=== PATIENT | male | born 1960 | race Caucasian/White ===

== ENCOUNTER 2021-05-20 11:54 | Observation (INO) | payer BC, MEDICAID ==
[2021-05-20] MEDS ORDERED: Dexamethasone 10 MG/ML SDV ONE (12:08)
[2021-05-20] MEDS ORDERED: hydrOXYzine HCl 50 MG/ML SDV ONE (12:08)
[2021-05-20] MEDS ORDERED: methylPREDNISolone Sodium Succinate 125 MG/2 ML SDV ONE (12:10)
[2021-05-20] MEDS ORDERED: methylPREDNISolone Sodium Succinate 125 MG/2 ML SDV IVPUSH ONE (12:12)
[2021-05-20] MEDS ORDERED: Famotidine 20 MG/2 ML SDV IVPUSH ONE (12:23)
[2021-05-20] MEDS ORDERED: Sodium Chloride 0.9% 1,000 ML IV ONE (12:35)
[2021-05-20] MEDS: Sodium Chloride 0.9% 10 ML Syringe FLUSH PRN (13:03)
[2021-05-20] MEDS ORDERED: EPINEPHrine 1 MG/1 ML Amp IM ONE (13:34)
[2021-05-20] MEDS ORDERED: EPINEPHrine 1 MG/1 ML Amp ONE (13:34)
--- NOTE | 2021-05-20 13:56 | EDM.PDOC ---
ED HPI GENERAL MEDICAL PROBLEM - General Chief Complaint: Allergic Reaction Stated Complaint: swollen tongue Time Seen by Provider: 05/20/21 12:45 Source of Information: Reports: Patient History Limitations: Reports: No Limitations - History of Present Illness INITIAL COMMENTS - FREE TEXT/NARRATIVE: Patient states this morning after eating a breakfast pizza he noticed that his lip started feeling fine as well as his tongue and then they started swelling within the 10 to 15 minutes after finishing it. He states he did every just like a pizza for secondary to it being a new one in his hotel. He said he is never had any issues like this before. He does take lisinopril for hypertension but he did not take it this morning his last dose was about 9:00 last night. And he has been on it for 10+ years. He denies any trouble breathing swallowing or holding spit at this time. He has noticed though that his tongue is gotten thicker as well as his lips since the start of this episode. 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(s) Other Treatments BUILDING INSPECTION ENGINEER: Benadryl - Related Data Allergies Allergy/AdvReac Type Severity Reaction Status Date / Time No Known Allergies Allergy Verified 05/20/21 11:58 Home Meds: Home Meds Aspirin [Halfprin] 81 mg PO DAILY 05/20/21 [History] Meloxicam 15 mg PO DAILY 05/20/21 [History] Phentermine HCl 15 mg PO DAILY 05/20/21 [History] atorvaSTATin [Lipitor] 10 mg PO BEDTIME 05/20/21 [History] glipiZIDE [Glucotrol] 5 mg PO DAILY 05/20/21 [History] hydroCHLOROthiazide [Hydrochlorothiazide] 50 mg PO DAILY 05/20/21 [History] lisinopriL [Lisinopril] 20 mg PO BID 05/20/21 [History] metFORMIN [Glucophage] 500 mg PO BIDMEALS 05/20/21 [History] Social & Family History - Tobacco Use Tobacco Use Status *Q: Former Tobacco User Years of Tobacco use: 35 Packs/Tins Daily: 3 Used Tobacco, but Quit: Yes Month/Year Tobacco Last Used: 03/2000 Second Hand Smoke Exposure: No - Caffeine Use Caffeine Use: Reports: Coffee, Soda Other Caffeine Use: "a lot of coffee", 1-2 sodas daily - Alcohol Use Days Per Week of Alcohol Use: 1 Number of Drinks Per Day: 1 Total Drinks Per Week: 1 - Recreational Drug Use Recreational Drug Use: No ED ROS ALLERGIC REACTION - Review of Systems Review Of Systems: See Below Constitutional: Reports: No Symptoms HEENT: Denies: Eye Discharge, Sinus Problem, Throat Pain, Throat Swelling Respiratory: Reports: No Symptoms. Denies: Shortness of Breath, Wheezing, Cough Cardiovascular: Reports: No Symptoms Endocrine: Reports: No Symptoms GI/Abdominal: Reports: No Symptoms Skin: Reports: No Symptoms. Denies: Pruritis, Rash, Erythema, Urticaria Neurological: Reports: No Symptoms Psychiatric: Reports: No Symptoms Hematologic/Lymphatic: Reports: No Symptoms Immunologic: Reports: No Symptoms. Denies: Anaphylaxis (Questionable allergy to something on the pizza versus possible lisinopril allergy with ESTRELLA inhibitor) ED EXAM GENERAL NO PERIP PULSE - Physical Exam Exam: See Below Text/Narrative:: Patient has normal phonation Mallampati score of two I can visualize oropharynx there is no noted submandibular edema the uvula is in line he has a normal respiratory drive talking with no issues. But there is significant angioedema noted. Exam Limited By: No Limitations General Appearance: Alert, WD/WN, No Apparent Distress Eye Exam: Bilateral Eye: EOMI, Normal Inspection, PERRL Ears: Normal External Exam, Normal Canal, Hearing Grossly Normal, Normal TMs Nose: Normal Inspection, Normal Mucosa, No Blood Throat/Mouth: Normal Teeth, Normal Gums, Normal Oropharynx, Normal Voice, No Airway Compromise, Other (There is significant angioedema with the lips and the tongue but I can fully visualize the posterior pharynx he has a Mallampati score of two. There is no noted tonsillar edema the uvula is midline). No: Normal Inspection, Normal Lips Neck: Normal Inspection, Supple, Non-Tender, Full Range of Motion Respiratory/Chest: No Respiratory Distress, Lungs Clear, Normal Breath Sounds, No Accessory Muscle Use, Chest Non-Tender. No: Decreased Breath Sounds, Wheezing Cardiovascular: Normal Peripheral Pulses, Regular Rate, Rhythm, No Edema, No Gallop, No JVD, No Murmur, No Rub GI/Abdominal: Normal Bowel Sounds, Soft, Non-Tender, No Organomegaly, No Distention Extremities: Normal Inspection, Normal Range of Motion, Non-Tender, No Pedal Edema Neurological: Alert, Oriented, CN II-XII Intact, Normal Cognition, Normal Gait, No Motor/Sensory Deficits Psychiatric: Normal Affect, Normal Mood Skin Exam: Warm, Dry, Intact, Normal Color, No Rash Lymphatic: No Adenopathy Course - Vital Signs Text/Narrative:: Patient was given 50 mg of Vistaril IM 10 mg of Decadron IV 125 mg Solu-Medrol IV 20 mg Pepcid IV he was reassessed multiple times showed 50% decrease in angioedema patient states he feels better although he still feels that his tongue is very thick lips have improved dramatically. Vital signs are still within normal limits patient has no respiratory issues. Patient was given epinephrine 1 to 10,000 units 0.3 mL subcu. Patient showed no signs of any anaphylaxis shock prior to this this is secondary to laryngeal edema Patient was rechecked states he feels better but still not 100%. At this time patient will place in observation for the next 24 hours given a course of steroids H2 summer IV and if everything looks well will discharge in the morning. Last Recorded V/S: Last Vital Signs Temp 36.6 C 05/20/21 12:44 Pulse 72 05/20/21 13:44 Resp 16 05/20/21 13:44 BP 132/82 05/20/21 13:44 Pulse Ox 93 L 05/20/21 13:44 - Orders/Labs/Meds Orders: Active Orders 24 hr Category Date Time Status Peripheral IV Care [RC] . DIRECTED Care 05/20/21 13:02 Active Sodium Chloride 0.9% [Saline Flush] Med 05/20/21 13:02 Active 10 ml FLUSH ASDIRECTED PRN Peripheral IV Insertion Adult [OM.PC] Routine Oth 05/20/21 13:02 Ordered Medication Orders Sodium Chloride (Sodium Chloride 0.9% 10 Ml Syringe) 10 ml FLUSH ASDIRECTED PRN PRN Reason: Keep Vein Open Last Admin: 05/20/21 13:03 Dose: 10 ml Documented by: RAFAEL Meds: Medications Generic Name Dose Route Start Last Admin Trade Name Freq PRN Reason Stop Dose Admin Sodium Chloride 10 ml 05/20/21 13:02 05/20/21 13:03 Sodium Chloride 0.9% 10 Ml Syringe FLUSH 10 ml ASDIRECTED PRN Administration Keep Vein Open Discontinued Medications Generic Name Dose Route Start Last Admin Trade Name Erin PRN Reason Stop Dose Admin Dexamethasone Confirm 05/20/21 12:08 05/20/21 12:23 Dexamethasone 10 Mg/Ml Sdv Administered 05/20/21 12:09 10 mg Dose Administration 10 mg .ROUTE .STK-MED ONE Epinephrine HCl 0.3 mg 05/20/21 13:34 05/20/21 13:39 Epinephrine 1 Mg/1 Ml Amp IM 05/20/21 13:35 0.3 mg ONETIME ONE Administration Epinephrine HCl Confirm 05/20/21 13:34 Epinephrine 1 Mg/1 Ml Amp Administered 05/20/21 13:35 Dose 1 mg .ROUTE .STK-MED ONE Famotidine 20 mg 05/20/21 12:23 05/20/21 12:28 Famotidine 20 Mg/2 Ml Sdv IVPUSH 05/20/21 12:24 20 mg ONETIME ONE Administration Hydroxyzine HCl Confirm 05/20/21 12:08 05/20/21 12:20 Hydroxyzine Hcl 50 Mg/Ml Sdv Administered 05/20/21 12:09 50 mg Dose Administration 50 mg .ROUTE .STK-MED ONE Sodium Chloride 1,000 mls @ 999 mls/hr 05/20/21 12:35 05/20/21 13:20 Normal Saline IV 05/20/21 13:35 999 mls/hr .BOLUS ONE Infusion Methylprednisolone Sodium Succinate 125 mg 05/20/21 12:12 05/20/21 12:19 Methylprednisolone Sodium Succinate 125 Mg/2 Ml Sdv IVPUSH 05/20/21 12:13 125 mg ONETIME ONE Administration Methylprednisolone Sodium Succinate Confirm 05/20/21 12:10 05/20/21 12:36 Methylprednisolone Sodium Succinate 125 Mg/2 Ml Sdv Administered 05/20/21 12:11 Not Given Dose 125 mg .ROUTE .STK-MED ONE Departure - Departure Time of Disposition: 14:00 Disposition: Refer to Observation Condition: Good Clinical Impression: Angioedema of lips, Angioedema - Discharge Information *PRESCRIPTION DRUG MONITORING PROGRAM REVIEWED*: No *COPY OF PRESCRIPTION DRUG MONITORING REPORT IN PATIENT SAFIA: No Referrals: Pau Strickland NP [Primary Care Provider] - Sepsis Event Note (ED) - Evaluation Sepsis Screening Result: No Definite Risk - Focused Exam Vital Signs: Vital Signs Temp Pulse Resp BP Pulse Ox 05/20/21 13:44 72 16 132/82 93 L 05/20/21 12:44 36.6 C 73 20 135/83 96 - Problem List & Annotations (1) Angioedema SNOMED Code(s): 44556868 Code(s): T78.3XXA - ANGIONEUROTIC EDEMA, INITIAL ENCOUNTER Status: Acute Current Visit: Yes (2) Angioedema of lips SNOMED Code(s): 760928022 Code(s): T78.3XXA - ANGIONEUROTIC EDEMA, INITIAL ENCOUNTER Status: Acute Current Visit: Yes - My Orders Last 24 Hours: My Active Orders 05/20/21 13:02 Peripheral IV Care [RC] . DIRECTED Sodium Chloride 0.9% [Saline Flush] 10 ml FLUSH ASDIRECTED PRN Peripheral IV Insertion Adult [OM.PC] Routine - Assessment/Plan Admission H&P: Please use this note as an admission H&P (Patient was placed in observation) Last 24 Hours: My Active Orders 05/20/21 13:02 Peripheral IV Care [RC] . DIRECTED Sodium Chloride 0.9% [Saline Flush] 10 ml FLUSH ASDIRECTED PRN Peripheral IV Insertion Adult [OM.PC] Routine
[2021-05-20] MEDS ORDERED: diphenhydrAMINE 50 MG/ML SDV IVPUSH PRN (14:10)
[2021-05-20] MEDS ORDERED: Sodium Chloride 0.9% 500 ML IV SCH (14:15)
[2021-05-20] MEDS ORDERED: methylPREDNISolone Sodium Succinate 125 MG/2 ML SDV IVPUSH SCH (14:15)
[2021-05-20] MEDS ORDERED: Dexamethasone 10 MG/ML SDV IVPUSH SCH (14:15)
[2021-05-20] MEDS: Sodium Chloride 0.9% 1,000 ML IV SCH (16:30)
[2021-05-20] MEDS: Dexamethasone 10 MG/ML SDV IVPUSH SCH (17:45)
[2021-05-20] MEDS: metFORMIN 500 MG Tab PO SCH (17:46)
[2021-05-20] MEDS: methylPREDNISolone Sodium Succinate 125 MG/2 ML SDV IVPUSH SCH (17:46)
[2021-05-20] MEDS ORDERED: atorvaSTATin 10 MG Tab PO SCH (20:00)
[2021-05-20] MEDS: Famotidine 20 MG/2 ML SDV IVPUSH SCH (21:07)
[2021-05-21] MEDS: methylPREDNISolone Sodium Succinate 125 MG/2 ML SDV IVPUSH SCH ×2 (00:32→06:03)
[2021-05-21] MEDS: Dexamethasone 10 MG/ML SDV IVPUSH SCH ×2 (00:32→06:02)
[2021-05-21] MEDS: Sodium Chloride 0.9% 10 ML Syringe FLUSH PRN ×2 (00:33→06:03)
[2021-05-21] MEDS: Sodium Chloride 0.9% 1,000 ML IV SCH (02:33)
[2021-05-21] MEDS: metFORMIN 500 MG Tab PO SCH (07:19)
[2021-05-21] MEDS: Famotidine 20 MG/2 ML SDV IVPUSH SCH (07:20)
--- NOTE | 2021-05-21 07:48 | PCM.DCSUM1 ---
Discharge Summary - Hospital Course Free Text/Narrative:: Patient was placed in observation last night secondary to angioedema. There is no complications or issues through the night. Patient states he feels great this morning wants to go home says he has not slept that well in a while. Brief History: See discharge H&P for full details. Patient was placed in observation secondary to acute angioedema whether it was called secondary from eating a breakfast pizza which he had never had for. Are secondary to long-term use of lisinopril which I believe was the cause of the angioedema. There is no issues through the night while placed in observation patient states he feels fine this morning feels back to normal by 100% and wants to go home. Diagnosis: Stroke: No - Discharge Data Discharge Date: 05/21/21 Discharge Disposition: Home, Self-Care 01 Event(s) Leading to Patient's *Q: NA Condition: Good - Referral to Home Health Primary Care Physician: Pau Strickland NP - Discharge Diagnosis/Problem(s) (1) Angioedema SNOMED Code(s): 48687307 ICD Code: T78.3XXA - ANGIONEUROTIC EDEMA, INITIAL ENCOUNTER Status: Acute Current Visit: Yes (2) Angioedema of lips SNOMED Code(s): 883063214 ICD Code: T78.3XXA - ANGIONEUROTIC EDEMA, INITIAL ENCOUNTER Status: Acute Current Visit: Yes - Patient Summary/Data Hospital Course: Vital signs noted off nursing notes stable through the night and this morning. Discharge exam head normocephalic atraumatic eyes PERRLA EOMI no injection oropharynx the lips are returned normal size along with the tongue there is no edema no hardening of the soft palate the patient has a Mallampati of 1 normal phonation moist mucous brains neck full range of motion no adenopathy appreciated heart regular rate and rhythm normal S1-S2 no murmurs rubs gallops appreciated lungs clear to auscultation bilaterally all boyle abdomen soft nontender negative HSM positive bowel sounds extremities full range of motion no edema noted. Assessment #1 acute angioedema 2. Medication reaction 3. Hypertension history 4. Diabetic type II - Patient Instructions Diet: Heart Healthy Diet Activity: As Tolerated Driving: May Drive Today Showering/Bathing: May Shower - Discharge Plan *PRESCRIPTION DRUG MONITORING PROGRAM REVIEWED*: No *COPY OF PRESCRIPTION DRUG MONITORING REPORT IN PATIENT SAFIA: No Home Medications: Home Meds Aspirin [Halfprin] 81 mg PO DAILY 05/20/21 [History] Meloxicam 15 mg PO DAILY 05/20/21 [History] Phentermine HCl 15 mg PO DAILY 05/20/21 [History] atorvaSTATin [Lipitor] 10 mg PO BEDTIME 05/20/21 [History] glipiZIDE [Glucotrol] 5 mg PO DAILY 05/20/21 [History] hydroCHLOROthiazide [Hydrochlorothiazide] 50 mg PO DAILY 05/20/21 [History] lisinopriL [Lisinopril] 20 mg PO BID 05/20/21 [History] metFORMIN [Glucophage] 500 mg PO BIDMEALS 05/20/21 [History] Patient Handouts: Epinephrine injection, Methylprednisolone Solution for Injection, Famotidine injection, Hydroxyzine injection, Dexamethasone injection Referrals: Pau Strickland NP [Primary Care Provider] - - Discharge Summary/Plan Comment DC Time >30 min.: No Discharge Summary/Plan Comment: Patient was educated do not take his lisinopril discussed with his primary care provider secondary to believe this is because of angioedema. Continue take all of his other medications as directed. Follow-up with his primary care provider in the next 24 hours Patient was instructed to return to the emergency room if any changes whatsoever occurred - Patient Data Vitals - Most Recent: Last Vital Signs Temp 36.0 C L 05/21/21 00:00 Pulse 98 05/21/21 00:00 Resp 20 05/21/21 00:00 BP 158/84 H 05/21/21 00:00 Pulse Ox 92 L 05/21/21 00:00 Weight - Most Recent: 136.078 kg I&O - Last 24 hours: Intake & Output 05/20/21 05/21/21 05/21/21 22:59 06:59 14:59 Intake Total 1336 Balance 1336 Med Orders - Current: Current Medications Aspirin (Aspirin 81 Mg Tab.Ec) 81 mg PO DAILY [facility] Last Admin: 05/21/21 07:19 Dose: 81 mg Documented by: Atorvastatin Calcium (Atorvastatin 10 Mg Tab) 10 mg PO BEDTIME [facility] Last Admin: 05/20/21 19:58 Dose: 10 mg Documented by: Dexamethasone (Dexamethasone 10 Mg/Ml Sdv) 10 mg IVPUSH Q6H [facility] Last Admin: 05/21/21 06:02 Dose: 10 mg Documented by: Diphenhydramine HCl (Diphenhydramine 50 Mg/Ml Sdv) 25 mg IVPUSH Q6H PRN PRN Reason: Angioedema Famotidine (Famotidine 20 Mg/2 Ml Sdv) 20 mg IVPUSH Q12HR [facility] Last Admin: 05/21/21 07:20 Dose: 20 mg Documented by: Glipizide (Glipizide 5 Mg Tab) 5 mg PO DAILY [facility] Last Admin: 05/21/21 07:19 Dose: 5 mg Documented by: Hydrochlorothiazide (Hydrochlorothiazide 25 Mg Tab) 50 mg PO DAILY [facility] Last Admin: 05/21/21 07:18 Dose: 50 mg Documented by: Sodium Chloride (Normal Saline) 1,000 mls @ 100 mls/hr IV ASDIRECTED [facility] Last Admin: 05/21/21 02:33 Dose: 100 mls/hr Documented by: Metformin HCl (Metformin 500 Mg Tab) 500 mg PO BIDMEALS [facility] Last Admin: 05/21/21 07:19 Dose: 500 mg Documented by: Methylprednisolone Sodium Succinate (Methylprednisolone Sodium Succinate 125 Mg/2 Ml Sdv) 125 mg IVPUSH Q6H [facility] Last Admin: 05/21/21 06:03 Dose: 125 mg Documented by: Sodium Chloride (Sodium Chloride 0.9% 10 Ml Syringe) 10 ml FLUSH ASDIRECTED PRN PRN Reason: Keep Vein Open Last Admin: 05/21/21 06:03 Dose: 10 ml Documented by: Discontinued Medications Dexamethasone (Dexamethasone 10 Mg/Ml Sdv) Confirm Administered Dose 10 mg .ROUTE .STK-MED ONE Stop: 05/20/21 12:09 Last Admin: 05/20/21 12:23 Dose: 10 mg Documented by: Dexamethasone (Dexamethasone 10 Mg/Ml Sdv) 10 mg IVPUSH Q6H [facility] Last Admin: 05/20/21 17:37 Dose: Not Given Documented by: Epinephrine HCl (Epinephrine 1 Mg/1 Ml Amp) 0.3 mg IM ONETIME ONE Stop: 05/20/21 13:35 Last Admin: 05/20/21 13:39 Dose: 0.3 mg Documented by: Epinephrine HCl (Epinephrine 1 Mg/1 Ml Amp) Confirm Administered Dose 1 mg .ROUTE .STK-MED ONE Stop: 05/20/21 13:35 Last Admin: 05/20/21 14:34 Dose: Not Given Documented by: Famotidine (Famotidine 20 Mg/2 Ml Sdv) 20 mg IVPUSH ONETIME ONE Stop: 05/20/21 12:24 Last Admin: 05/20/21 12:28 Dose: 20 mg Documented by: Hydroxyzine HCl (Hydroxyzine Hcl 50 Mg/Ml Sdv) Confirm Administered Dose 50 mg .ROUTE .STK-MED ONE Stop: 05/20/21 12:09 Last Admin: 05/20/21 12:20 Dose: 50 mg Documented by: Sodium Chloride (Normal Saline) 1,000 mls @ 999 mls/hr IV .BOLUS ONE Stop: 05/20/21 13:35 Last Infusion: 05/20/21 13:20 Dose: 999 mls/hr Documented by: Sodium Chloride (Normal Saline) 500 mls @ 100 mls/hr IV ASDIRECTED [facility] Methylprednisolone Sodium Succinate (Methylprednisolone Sodium Succinate 125 Mg/2 Ml Sdv) 125 mg IVPUSH ONETIME ONE Stop: 05/20/21 12:13 Last Admin: 05/20/21 12:19 Dose: 125 mg Documented by: Methylprednisolone Sodium Succinate (Methylprednisolone Sodium Succinate 125 Mg/2 Ml Sdv) Confirm Administered Dose 125 mg .ROUTE .STK-MED ONE Stop: 05/20/21 12:11 Last Admin: 05/20/21 12:36 Dose: Not Given Documented by: Methylprednisolone Sodium Succinate (Methylprednisolone Sodium Succinate 125 Mg/2 Ml Sdv) 125 mg IVPUSH Q6H [facility] Last Admin: 05/20/21 17:37 Dose: Not Given Documented by:
[2021-05-21] MEDS ORDERED: glipiZIDE 5 MG Tab PO SCH (08:00)
[2021-05-21] MEDS ORDERED: Hydrochlorothiazide 25 MG Tab PO SCH (08:00)
[2021-05-21] MEDS ORDERED: Aspirin 81 MG Tab.EC PO SCH (08:00)
== END 2021-05-21 08:33 | disposition home or self-care (01) ==
LOC: LL.ED 11:54 → UNDOADMOB 14:08 → LL.MS 14:08
PROVIDERS: ADMIT Physician Assistant Medical; ATTEND Physician Assistant Medical
DX: T78.3XXA Angioneurotic edema, initial encounter (principal); I10 Essential (primary) hypertension; E11.9 Type 2 diabetes mellitus without complications; Z79.899 Other long term (current) drug therapy; Z79.82 Long term (current) use of aspirin; Z87.891 Personal history of nicotine dependence; Z79.84 Long term (current) use of oral hypoglycemic drugs
CPT/HCPCS: 96372; 96374; 96375; 96376; 99217; 99220; 99284-25; A9270-GY; G0378; J0171; J1100; J2930; J3410; J3490; J7030

== ENCOUNTER 2022-06-14 10:39 | Emergency (ER) | payer MEDICAID ==
[2022-06-14] MEDS ORDERED: cefTRIAXone 1 GM Vial IM ONE (11:37)
[2022-06-14] MEDS ORDERED: Lidocaine 1% 5 ML VIAL INJECT ONE (11:37)
== END 2022-06-14 12:20 | disposition home or self-care (01) ==
LOC: LL.ED 10:39
DX: L03.011 Cellulitis of right finger (principal); E10.9 Type 1 diabetes mellitus without complications; Z88.8 Allergy status to other drugs, medicaments and biological substances; Z79.82 Long term (current) use of aspirin; Z79.899 Other long term (current) drug therapy
CPT/HCPCS: 96372; 99283; J0696